=== PATIENT | female | born 1970 | race Caucasian/White ===

== ENCOUNTER 2019-12-24 16:15 | Observation (INO) | payer BC, OTHER ==
[2019-12-24] MEDS ORDERED: HYDROcodone/Acetaminophen 5/325 mg Tablet PO PRN (17:12)
[2019-12-24] MEDS ORDERED: diphenhydrAMINE 50 MG/ML VIAL IVP PRN (17:12)
[2019-12-24] MEDS ORDERED: hydrALAZINE 20 MG/ML VIAL SLOW IVP PRN (17:12)
[2019-12-24] MEDS ORDERED: Zolpidem Tartrate 5 MG TAB PO PRN (17:12)
[2019-12-24] MEDS: Docusate 100 MG CAP PO SCH (20:20)
--- NOTE | 2019-12-24 20:25 | CT ---
CT ABDOMEN AND PELVIS PERFORMED WITHOUT CONTRAST ENHANCEMENT: 12/24/19 HISTORY: Bilateral flank pain. COMPARISON: 12/07/19 exam. The lung bases are clear. The liver, spleen, and pancreas regions appear unremarkable given the limitations of a noncontrast ex am. The gallbladder has been removed. Right and left adrenal glands and right and left kidneys are normal in size. A punctate upper pole le ft renal calculus is seen. Minimal prominence to the left renal pelvis but the left ureter is nondila anjelica. There is a calcification near the distal left ureter but this appears to be a phlebolith adjacen t to the ureter and not a true ureteral calculus. The ureteral calculus which appear to have been exp elled into the bladder on the prior examination is no longer seen. There is no periaortic or mesenter ic adenopathy. The appendix region appears unremarkable. No free fluid within the abdomen. IMPRESSION: Punctate nonobstructing left renal calculus. POS: [facility]
[2019-12-24] MEDS: Sodium Chloride 0.9% 1,000 ML IV SCH (21:39)
[2019-12-24] MEDS: Ondansetron PF 4 MG/2 ML Vial IVP PRN (21:39)
[2019-12-24] MEDS ORDERED: Cyclobenzaprine 10 MG TAB PO PRN (21:57)
[2019-12-24 22:38] LABS: #Eosinphils 0.7 thou/uL (0.0-0.7); #Lymphocytes 3.1 thou/uL (1.20-3.40); #Monocytes 0.6 thou/uL (0.11-0.59); #Neutrophils 6.4 thou/uL (1.40-6.50); %Basophils 0.5 % (0.0-1.0); %Eosinophils 6.5 % (0.0-10.0); %Lymphocytes 29.1 % (21.0-51.0); %Monocytes 5.2 % (0.0-10.0); %Neutrophils 58.8 % (42.0-75.0); Hemoglobin 12.8 g/dL (12.0-16.0); Mean Corpuscular HGB CONC 33.6 g/dL (32.0-36.0); Mean Corpuscular Hemoglobin 29.2 pg (27.0-31.0); Mean Corpuscular Volume 86.9 fL (78.0-98.0); Mean Platelet Volume 8.3 fL (7.4-10.4); Platelet Count 306 thou/uL (130-400); Red Blood Cell (RBC) Count 4.38 mill/uL (4.20-5.40); White Blood Cell (WBC) Count 10.8 thou/uL (4.8-10.8)
[2019-12-24 22:46] LABS: Anion Gap 18 mmol/L (10-20); BUN (Urea Nitrogen) 21 mg/dL (7.0-18.7); Calc. Creatinine Clearance 0 mL/min (70-130); Calcium 10.9 mg/dL (7.8-10.44); Carbon Dioxide 22 mmol/L (22-29); Chloride 98 mmol/L (98-107); Estimated GFR-MDRD 45; Glucose 128 mg/dL (70-105); Sodium 134 mmol/L (136-145)
[2019-12-25] MEDS: Morphine 4 MG/ML VIAL SLOW IVP PRN ×2 (01:19→10:37)
[2019-12-25 02:42] VITALS: BMI 33.3
[2019-12-25] MEDS: Sodium Chloride 0.9% 1,000 ML IV SCH ×3 (04:37→08:57)
[2019-12-25] MEDS: Ondansetron PF 4 MG/2 ML Vial IVP PRN ×2 (05:04→10:34)
[2019-12-25] MEDS ORDERED: metFORMIN 500 MG TAB PO SCH (08:00)
[2019-12-25] MEDS: Docusate 100 MG CAP PO SCH (08:56)
[2019-12-25] MEDS ORDERED: Lisinopril/Hydrochlorothiazide 20 mg/12.5 mg Tablet PO SCH (09:00)
[2019-12-25] MEDS ORDERED: Pioglitazone HCl 15 MG TAB PO SCH (09:00)
--- NOTE | 2019-12-25 09:08 | PRG ---
DATE OF SERVICE: 12/25/2019 CHIEF COMPLAINT: Left flank pain, nausea. SUBJECTIVE: The patient tells me that she has improved overnight with resolution of her left-sided flank pain. She does still have some right-sided abdominal discomfort as well as intermittent nausea. She denies fevers, headaches, chest pains, difficulty breathing, dysuria, or hematuria. REVIEW OF SYSTEMS: 10-point review of systems is otherwise negative. OBJECTIVE: VITAL SIGNS: Afebrile. Vitals are stable overnight. Urine output was not recorded. GENERAL: No acute distress, conversant. HEENT: Head, normocephalic and atraumatic. Extraocular movements are intact. Sclerae nonicteric. NECK: Supple. Trachea midline. CHEST: Unlabored breathing, symmetric chest expansion. HEART: Regular rate and rhythm. ABDOMEN: Soft, nondistended, mild right-sided tenderness. No significant flank tenderness. No suprapubic tenderness. SKIN: Warm and dry. EXTREMITIES: Without clubbing, cyanosis, or edema. NEUROLOGIC: Alert and oriented x3. PSYCHIATRIC: Normal mood and affect. LABORATORY DATA: Laboratory values from yesterday were reviewed. White count 10.8. Creatinine 1.27. Urinalysis still pending. IMAGING DATA: CT from yesterday shows mild residual left-sided hydronephrosis with no obstructing stones. She does have a small punctate left upper pole nonobstructing calculus. ASSESSMENT AND PLAN: 1. Hospital day 2, kidney stone, hydronephrosis, hyponatremia. 2. Continue normal saline. 3. Resume normal diet. 4. The patient seems to have passed her stone late yesterday, likely between clinic and having her CT scan as the CT showed signs of very recent stone passage. 5. I will re-evaluate her around noon today and if she is doing well, we will plan discharge. TIME SPENT: 60 minutes spent in patient's care. Job ID: [id number] MTDD
[2019-12-25 11:06] VITALS: BP 114/76; TEMP 97.9
[2019-12-25 12:22] LABS: SARS-CoV-2 MS2 Positive; SARS-CoV-2 N Gene Negative; SARS-CoV-2 S Gene Negative; SARS-CoV-2 orf1ab Negative
[2019-12-25] MEDS ORDERED: Ketorolac Tromethamine 30 MG/ML VIAL IVP SCH (14:00)
[2019-12-25] MEDS ORDERED: Atorvastatin Calcium 20 MG TAB PO SCH (21:00)
--- NOTE | 2019-12-26 03:29 | DIS ---
DATE OF ADMISSION: 12/24/2019 DATE OF DISCHARGE: 12/25/2019 CHIEF COMPLAINT: Left flank pain. DISCHARGE DIAGNOSES: Hydronephrosis, kidney stone, acute kidney injury, and diabetes. HOSPITAL COURSE: A 49-year-old female with a history of obstructing left ureteral stone, seen in my office yesterday afternoon with continued severe pain and nausea. We elected to admit her to the hospital. She had a CT scan later that evening, which showed mild left hydroureter and hydronephrosis, likely secondary to recent stone passage as no obstructing stone was seen. She was managed with pain control, nausea control, IV hydration overnight with improvement of her symptoms by the next day. Through with the mid afternoon, she continued to have occasional flank discomfort, however, this only lasted for a few moments at that time and overall she was doing much better. She was tolerating a regular diet, ambulating, having minimal discomfort and so was deemed stable for discharge home. DISCHARGE MEDICATIONS: Include, 1. Phenergan. 2. Bactrim. 3. Tramadol. 4. Toradol. FOLLOWUP PLAN: Two weeks in my office to begin discussing metabolic workup for recurrent stones. Job ID: [id number]
== END 2019-12-25 15:46 | disposition home or self-care (01) ==
LOC: EDSTATUS 16:16 → SURG A 18:25
PROVIDERS: ADMIT Urology; ATTEND Urology
DX: N13.2 Hydronephrosis with renal and ureteral calculous obstruction (principal); N17.9 Acute kidney failure, unspecified; E11.9 Type 2 diabetes mellitus without complications; Z79.84 Long term (current) use of oral hypoglycemic drugs; Z79.899 Other long term (current) drug therapy; Z88.0 Allergy status to penicillin; Z88.1 Allergy status to other antibiotic agents; Z91.048 Other nonmedicinal substance allergy status
CPT/HCPCS: 36415; 74176; 80048; 81001; 85025; 87635; 96361; 96374; 96375; 96376; G0378; J1885; J2270; J2405; U0003

== ENCOUNTER 2020-04-06 12:34 | Outpatient (CLI) | payer BC ==
--- NOTE | 2020-04-06 14:22 | ULT ---
Renal sonogram HISTORY: Kidney stone. COMPARISON: CT abdomen 12/24/2019. Right kidney is 11.5 cm with a lobular cortex. Echogenic focus in the cortex at the inferior pole may represent a cortical calcification that is very subtle on recent CT. No renal collecting system calcification or hydronephrosis apparent. Left kidney is 11.4 cm length. Lobular cortex without hydronephrosis. Stones not visualized sonograph ically. Urinary bladder is unremarkable. Left ureteral jets documented. Right ureteral jet not well seen. Pos t void urinary bladder residual 7 cc. IMPRESSION : No evidence of urinary tract obstruction. Renal stones not well visualized sonographically.
== END 2020-04-06 12:35 | disposition home or self-care (01) ==
LOC: BICULT 12:34
PROVIDERS: ATTEND Urology
DX: N20.1 Calculus of ureter (principal)
CPT/HCPCS: 76770

== ENCOUNTER 2020-04-29 09:40 | Outpatient (CLI) | payer BC ==
--- NOTE | 2020-05-05 09:18 | MMO ---
Bilateral MAMMO Bilat Screen [facility]. CLINICAL HISTORY: Patient is 49 years old and is seen for screening. The patient has the following family history of breast cancer: maternal grandmother, malignant (generic). The patient has no personal history of cancer. VIEWS: The views performed were: bilateral craniocaudal with tomosynthesis and bilateral mediolateral oblique with tomosynthesis. FILMS COMPARED: The present examination has been compared to a prior imaging study performed at [facility] on 05/07/2017. This study has been interpreted with the assistance of computer-aided detection. MAMMOGRAM FINDINGS: There are scattered fibroglandular densities. There are no suspicious masses, suspicious calcifications, or new areas of architectural distortion. IMPRESSION: THERE IS NO MAMMOGRAPHIC EVIDENCE OF MALIGNANCY. A ROUTINE FOLLOW-UP MAMMOGRAM IN 1 YEAR IS RECOMMENDED. THE RESULTS OF THIS EXAM WERE SENT TO THE PATIENT. ACR BI-RADS Category 1 - Negative MAMMOGRAPHY NOTE: 1. A negative mammogram report should not delay a biopsy if a dominant of clinically suspicious mass is present. 2. Approximately 10% to 15% of breast cancers are not detected by mammography. 3. Adenosis and dense breasts may obscure an underlying neoplasm. Reported by: ANTONIO PEREZ MD Electonically Signed: [id number]
== END 2020-04-29 09:41 | disposition home or self-care (01) ==
LOC: BICMAMMO 09:40
PROVIDERS: ATTEND Family Medicine Sports Medicine
DX: Z12.31 Encounter for screening mammogram for malignant neoplasm of breast (principal); Z80.3 Family history of malignant neoplasm of breast
CPT/HCPCS: 77063; 77067

== ENCOUNTER 2021-04-13 09:51 | Outpatient (CLI) | payer BC | END 2021-04-13 09:52 | disposition home or self-care (01) | LOC: BICRAD 09:51 | PROVIDERS: ATTEND Urology | DX: Z87.442 Personal history of urinary calculi (principal) | CPT/HCPCS: 74018 ==

== ENCOUNTER 2022-01-11 14:24 | Outpatient (CLI) | payer BC | END 2022-01-11 14:25 | disposition home or self-care (01) | LOC: TBSIIMAG 14:24 | PROVIDERS: ATTEND Neurological Surgery | DX: M54.16 Radiculopathy, lumbar region (principal); M47.817 Spondylosis without myelopathy or radiculopathy, lumbosacral region | CPT/HCPCS: 72148 ==

== ENCOUNTER 2022-02-20 15:54 | Outpatient (CLI) | payer BC ==
[2022-02-20 17:11] LABS: Anion Gap 16 mmol/L (10-20); BUN (Urea Nitrogen) 19 mg/dL (9.8-20.1); Calc. Creatinine Clearance 0 mL/min (70-130); Calcium 10.1 mg/dL (7.8-10.44); Carbon Dioxide 24 mmol/L (22-29); Chloride 102 mmol/L (98-107); Estimated GFR 63; Glucose 165 mg/dL (70-105); Potassium 4.2 mmol/L (3.5-5.1); Sodium 138 mmol/L (136-145)
== END 2022-02-20 15:55 | disposition home or self-care (01) ==
LOC: LABBT 15:54
PROVIDERS: ATTEND Neurological Surgery
DX: Z01.818 Encounter for other preprocedural examination (principal); M54.16 Radiculopathy, lumbar region; M43.16 Spondylolisthesis, lumbar region; Z20.822 Contact with and (suspected) exposure to COVID-19
CPT/HCPCS: 80048; 87811; 93005; 93010

== ENCOUNTER 2022-04-13 09:05 | Outpatient (CLI) | payer BC | END 2022-04-13 09:06 | disposition home or self-care (01) | LOC: TBSIIMAG 09:05 | PROVIDERS: ATTEND Neurological Surgery | DX: Z47.89 Encounter for other orthopedic aftercare (principal); Z98.1 Arthrodesis status; M43.17 Spondylolisthesis, lumbosacral region | CPT/HCPCS: 72100 ==

== ENCOUNTER 2022-05-09 08:26 | Outpatient (CLI) | payer BC | END 2022-05-09 08:27 | disposition home or self-care (01) | LOC: TBSIIMAG 08:26 | PROVIDERS: ATTEND Neurological Surgery | DX: M47.26 Other spondylosis with radiculopathy, lumbar region (principal); Z98.890 Other specified postprocedural states | CPT/HCPCS: 72158 ==

== ENCOUNTER 2022-08-16 09:11 | Outpatient (CLI) | payer BC | END 2022-08-16 09:12 | disposition home or self-care (01) | LOC: RAD 09:11 | PROVIDERS: ATTEND Family Medicine | DX: M54.2 Cervicalgia (principal) | CPT/HCPCS: 72040 ==

== ENCOUNTER 2022-10-16 08:54 | Outpatient (CLI) | payer BC | END 2022-10-16 08:55 | disposition home or self-care (01) | LOC: BICMAMMO 08:54 | PROVIDERS: ATTEND Internal Medicine | DX: Z12.31 Encounter for screening mammogram for malignant neoplasm of breast (principal) | CPT/HCPCS: 77063; 77067 ==

== ENCOUNTER 2023-01-02 09:36 | Outpatient (CLI) | payer BC | END 2023-01-02 09:37 | disposition home or self-care (01) | LOC: BICCT 09:36 | PROVIDERS: ATTEND Neurological Surgery | DX: M51.36 Other intervertebral disc degeneration, lumbar region (principal); M47.816 Spondylosis without myelopathy or radiculopathy, lumbar region; M47.817 Spondylosis without myelopathy or radiculopathy, lumbosacral region; M48.061 Spinal stenosis, lumbar region without neurogenic claudication; M48.07 Spinal stenosis, lumbosacral region; M43.16 Spondylolisthesis, lumbar region; Z98.1 Arthrodesis status | CPT/HCPCS: 72120; 72131 ==

== ENCOUNTER 2023-02-12 11:24 | Observation (INO) | payer BC ==
[2023-02-12 11:53] LABS: #Basophils 0.1 thou/uL (0.0-0.2); #Eosinphils 0.7 thou/uL (0.0-0.7); #Monocytes 0.5 thou/uL (0.11-0.59); #Neutrophils 5.3 thou/uL (1.40-6.50); %Basophils 0.9 % (0.0-1.0); %Eosinophils 8.2 % (0.0-10.0); %Lymphocytes 24.9 % (21.0-51.0); %Monocytes 5.4 % (0.0-10.0); %Neutrophils 60.3 % (42.0-75.0); Hematocrit 35.6 % (36.0-47.0); Hemoglobin 11.6 g/dL (12.0-16.0); Mean Corpuscular HGB CONC 32.6 g/dL (32.0-36.0); Mean Corpuscular Hemoglobin 27.8 pg (27.0-31.0); Mean Corpuscular Volume 85.2 fl (78.0-98.0); Mean Platelet Volume 10.5 fL (7.4-10.4); Platelet Count 344 10x3/uL (130-400); RBC Distribution Width 14.4 % (11.5-14.5); Red Blood Cell (RBC) Count 4.18 mill/uL (4.20-5.40); White Blood Cell (WBC) Count 8.8 10x3/uL (4.8-10.8)
[2023-02-12 12:20] LABS: ALT (SGPT) 13 U/L (8-55); AST (SGOT) 12 U/L (5-34); Albumin 4.4 g/dL (3.5-5.0); Alkaline Phosphatase 97 U/L (40-110); Anion Gap 20 mmol/L (10-20); BUN (Urea Nitrogen) 20 mg/dL (9.8-20.1); Bilirubin, Total 0.3 mg/dL (0.2-1.2); Calc. Creatinine Clearance 0 mL/min (70-130); Calcium 9.8 mg/dL (7.8-10.44); Carbon Dioxide 18 mmol/L (22-29); Chloride 103 mmol/L (98-107); Estimated GFR 53; Globulin 3.4 g/dL (2.4-3.5); Glucose 179 mg/dL (70-105); Potassium 4.2 mmol/L (3.5-5.1); Protein, Total 7.8 g/dL (6.0-8.3); Sodium 137 mmol/L (136-145)
[2023-02-12 12:23] LABS: Troponin I Less than 0.010 ng/mL (< 0.028)
[2023-02-12] MEDS ORDERED: Nitroglycerin 2% Ointment 1 INCH/1 GM Packet ONE (13:20)
[2023-02-12] MEDS ORDERED: Nitroglycerin 0.4 MG TAB 1 EACH ONE ×2 (13:20→15:17)
[2023-02-12] MEDS ORDERED: Aspirin Chewable 81 MG TAB ONE (13:20)
[2023-02-12] MEDS ORDERED: Ondansetron PF 4 MG/2 ML Vial ONE ×2 (13:39)
[2023-02-12] MEDS ORDERED: Nitroglycerin 0.4 MG TAB 1 EACH SL SCH (15:30)
[2023-02-12 15:56] LABS: Troponin I Less than 0.010 ng/mL (< 0.028)
[2023-02-12] MEDS ORDERED: Ondansetron PF 4 MG/2 ML Vial IVP PRN (16:15)
[2023-02-12] MEDS ORDERED: Ondansetron ODT 4 MG TAB SL PRN (16:15)
[2023-02-12 16:52] VITALS: BMI 33.5
[2023-02-12] MEDS ORDERED: traMADol HCl 50 MG TAB PO PRN ×2 (17:21→17:42)
[2023-02-12] MEDS ORDERED: Cyclobenzaprine 10 MG TAB PO PRN (17:33)
[2023-02-12] MEDS: Nitroglycerin 0.4 MG TAB (25 Tab Bottle) SL PRN ×5 (17:36→22:20)
[2023-02-12] MEDS: Acetaminophen 325 MG TAB PO PRN ×2 (17:38→22:43)
[2023-02-12] MEDS ORDERED: Morphine 2 MG/ML VIAL SLOW IVP SCH (17:54)
[2023-02-12 19:37] LABS: Troponin I Less than 0.010 ng/mL (< 0.028)
[2023-02-12] MEDS ORDERED: Atorvastatin Calcium 20 MG TAB PO SCH (21:00)
[2023-02-12] MEDS ORDERED: Nitroglycerin 2% Ointment 1 INCH/1 GM Packet TOP SCH (22:30)
[2023-02-12] MEDS: Morphine 2 MG/ML VIAL SLOW IVP PRN (22:36)
[2023-02-12 23:29] LABS: Troponin I Less than 0.010 ng/mL (< 0.028)
[2023-02-13 04:52] LABS: #Basophils 0.1 thou/uL (0.0-0.2); #Eosinphils 0.4 thou/uL (0.0-0.7); #Monocytes 0.5 thou/uL (0.11-0.59); #Neutrophils 6.2 thou/uL (1.40-6.50); %Basophils 0.5 % (0.0-1.0); %Eosinophils 4.5 % (0.0-10.0); %Lymphocytes 25.4 % (21.0-51.0); %Monocytes 4.9 % (0.0-10.0); %Neutrophils 64.3 % (42.0-75.0); Hematocrit 33.6 % (36.0-47.0); Hemoglobin 10.7 g/dL (12.0-16.0); Mean Corpuscular HGB CONC 31.8 g/dL (32.0-36.0); Mean Corpuscular Hemoglobin 28.1 pg (27.0-31.0); Mean Platelet Volume 10.4 fL (7.4-10.4); Platelet Count 321 10x3/uL (130-400); RBC Distribution Width 14.5 % (11.5-14.5); Red Blood Cell (RBC) Count 3.81 mill/uL (4.20-5.40); White Blood Cell (WBC) Count 9.7 10x3/uL (4.8-10.8)
[2023-02-13] MEDS: Morphine 2 MG/ML VIAL SLOW IVP PRN ×2 (04:52→09:16)
[2023-02-13 05:42] LABS: Mean Corpuscular Volume 88.2 fl (78.0-98.0)
[2023-02-13 06:59] LABS: Anion Gap 18 mmol/L (10-20); BUN (Urea Nitrogen) 25 mg/dL (9.8-20.1); Calc. Creatinine Clearance 69 mL/min (70-130); Calcium 9.5 mg/dL (7.8-10.44); Carbon Dioxide 21 mmol/L (22-29); Chloride 100 mmol/L (98-107); Estimated GFR 52; Glucose 277 mg/dL (70-105); Potassium 3.6 mmol/L (3.5-5.1); Sodium 135 mmol/L (136-145)
[2023-02-13] MEDS ORDERED: Sodium Chloride 0.9% 1,000 ML IV SCH (07:30)
[2023-02-13] MEDS ORDERED: Aspirin 325 mg Enteric Coated Tablet PO SCH (09:00)
[2023-02-13] MEDS ORDERED: Lisinopril/Hydrochlorothiazide 20 mg/12.5 mg Tablet PO SCH (09:00)
[2023-02-13] MEDS ORDERED: ADENOSINE 60 MG/20 ML SDV ONE (09:08)
[2023-02-13 17:01] VITALS: BP 126/71; TEMP 97.8
== END 2023-02-13 18:26 | disposition home or self-care (01) ==
LOC: ERS 11:24 → 2NO 15:04
PROVIDERS: ADMIT Hospitalist; ATTEND Emergency Medicine
DX: R07.9 Chest pain, unspecified (principal); I10 Essential (primary) hypertension; E78.5 Hyperlipidemia, unspecified; E11.9 Type 2 diabetes mellitus without complications; Z79.84 Long term (current) use of oral hypoglycemic drugs; Z79.82 Long term (current) use of aspirin; Z79.899 Other long term (current) drug therapy; Z88.1 Allergy status to other antibiotic agents; Z88.0 Allergy status to penicillin; Z88.8 Allergy status to other drugs, medicaments and biological substances; Z90.710 Acquired absence of both cervix and uterus; Z90.49 Acquired absence of other specified parts of digestive tract
CPT/HCPCS: 36415; 36416; 71045; 78452; 80048; 80053; 83690; 84484; 85025; 93005; 93010; 93017; 96374; 96375; 96376; A9500; G0378; J0153; J2272; J2405; J7050

== ENCOUNTER 2023-02-22 13:29 | Outpatient (CLI) | payer BC | END 2023-02-22 13:30 | disposition home or self-care (01) | LOC: BICCT 13:29 | PROVIDERS: ATTEND Neurological Surgery | DX: M51.36 Other intervertebral disc degeneration, lumbar region (principal); M47.816 Spondylosis without myelopathy or radiculopathy, lumbar region; Z98.890 Other specified postprocedural states | CPT/HCPCS: 72131 ==

== ENCOUNTER 2023-04-05 05:43 | Inpatient (IN) | payer BC ==
[2023-04-04 10:29] VITALS: BMI 32.5
[2023-04-05] MEDS ORDERED: Thrombin 5000 UNITS/5 ML VIAL ONE (06:19)
[2023-04-05] MEDS ORDERED: Bupivacaine PF 0.5% 30 ML VIAL ONE (06:19)
[2023-04-05] MEDS ORDERED: EPINEPHrine 1 MG/ML AMP ONE (06:19)
[2023-04-05] MEDS ORDERED: LevoFLOXacin 500 mg/D5W 100 ML BAG ONE (06:57)
[2023-04-05] MEDS ORDERED: Clindamycin/D5W 900 mg/50 ml Premix Bag ONE (06:57)
[2023-04-05] MEDS ORDERED: fentaNYL 50 mcg/mL 1 mL Vial ONE ×3 (07:08→11:52)
[2023-04-05] MEDS ORDERED: HYDROmorphone 2 MG/ML VIAL ONE (07:08)
[2023-04-05] MEDS ORDERED: Phenylephrine 10 MG/ML VIAL ONE (08:45)
[2023-04-05] MEDS ORDERED: SUGAMMADEX SODIUM 200 MG/2 ML VIAL ONE (08:52)
[2023-04-05] MEDS ORDERED: HYDROcodone/Acetaminophen 10/325 mg Tablet ONE (12:55)
[2023-04-05] MEDS ORDERED: tiZANidine HCl 4 MG TAB ONE (15:01)
== END 2023-04-05 15:50 | disposition home or self-care (01) | DRG 460 ==
LOC: SURG A 05:43
PROVIDERS: ADMIT Neurological Surgery; ATTEND Neurological Surgery
PROC: 0QP004Z Removal of Internal Fixation Device from Lumbar Vertebra, Open Approach (ICD-10-PCS; principal; 2023-04-05)
PROC: 0SG3071 Fusion of Lumbosacral Joint with Autologous Tissue Substitute, Posterior Approach, Posterior Column, Open Approach (ICD-10-PCS; 2023-04-05)
PROC: 0QP104Z Removal of Internal Fixation Device from Sacrum, Open Approach (ICD-10-PCS; 2023-04-05)
DX: T84.216A Breakdown (mechanical) of internal fixation device of vertebrae, initial encounter (principal); M54.16 Radiculopathy, lumbar region; E11.9 Type 2 diabetes mellitus without complications; E78.5 Hyperlipidemia, unspecified; M19.90 Unspecified osteoarthritis, unspecified site; Z82.49 Family history of ischemic heart disease and other diseases of the circulatory system; Z80.9 Family history of malignant neoplasm, unspecified; Z79.899 Other long term (current) drug therapy; Z88.0 Allergy status to penicillin; Z88.1 Allergy status to other antibiotic agents; Z91.048 Other nonmedicinal substance allergy status; M51.36 Other intervertebral disc degeneration, lumbar region
CPT/HCPCS: C1713; J0171; J1170; J1956; J2370; J3010; J3490; S0020

== ENCOUNTER 2023-05-09 08:01 | Outpatient (CLI) | payer BC | END 2023-05-09 08:02 | disposition home or self-care (01) | LOC: NM 08:01 | PROVIDERS: ATTEND Internal Medicine Gastroenterology | DX: R11.2 Nausea with vomiting, unspecified (principal); E11.9 Type 2 diabetes mellitus without complications; K31.89 Other diseases of stomach and duodenum; K30 Functional dyspepsia | CPT/HCPCS: 78264; A9541 ==

== ENCOUNTER 2023-07-17 10:31 | Outpatient (CLI) | payer BC | END 2023-07-17 10:32 | disposition home or self-care (01) | LOC: RAD 10:31 | PROVIDERS: ATTEND Otolaryngology Plastic Surgery within the Head & Neck | DX: R13.12 Dysphagia, oropharyngeal phase (principal) | CPT/HCPCS: 74230 ==

== ENCOUNTER 2023-12-23 08:16 | Outpatient (CLI) | payer BC | END 2023-12-23 08:17 | disposition home or self-care (01) | LOC: BICMAMMO 08:16 | PROVIDERS: ATTEND Internal Medicine | DX: N63.11 Unspecified lump in the right breast, upper outer quadrant (principal); N64.4 Mastodynia | CPT/HCPCS: 77066; G0279 ==

== ENCOUNTER 2025-02-18 12:46 | Outpatient (CLI) | payer BC | END 2025-02-18 12:47 | disposition home or self-care (01) | LOC: DTY/OP 12:46 | PROVIDERS: ATTEND Internal Medicine Gastroenterology | DX: E11.43 Type 2 diabetes mellitus with diabetic autonomic (poly)neuropathy (principal); K59.00 Constipation, unspecified | CPT/HCPCS: 97802 ==